=== PATIENT | female | born 1990 | race Caucasian/White ===

== ENCOUNTER 2018-08-31 08:40 | Emergency (ER) | payer SELFPAY ==
--- NOTE | 2018-08-31 10:14 | ER Document Report ---
HPI - HPI Patient complains to provider of: ankle pain left Time Seen by Provider: 08/31/18 09:43 Pain Level: 3 Context: 27-year-old female otherwise healthy presents to emergency department for left ankle injury sustained horseplaying in her bedroom this morning. She said that she was fighting for some car keys and she rolled her ankle. She was not able to bear weight on it and is still not able to bear weight on it at this time. She denies any head injury or striking her head. She denies any ankle or hip pain. She does have limited range of motion. No other complaints. - CONSTITUTIONAL Constitutional: DENIES: Fever, Chills - EENT EENT: DENIES: Sore Throat, Ear Pain, Eye problems - NEURO Neurology: DENIES: Headache, Weakness, Vision blurred, Dizzinesss / Vertigo - CARDIOVASCULAR Cardiovascular: DENIES: Chest pain - RESPIRATORY Respiratory: DENIES: Trouble Breathing, Coughing - GASTROINTESTINAL Gastrointestinal: DENIES: Abdominal Pain, Black / Bloody Stools - URINARY Urinary: DENIES: Dysuria, Urgency, Frequency - REPRODUCTIVE Reproductive: DENIES: : - MUSCULOSKELETAL Musculoskeletal: REPORTS: Extremity pain - left posterior ankle Past Medical History - Social History Smoking Status: Unknown if Ever Smoked Family History: None Patient has suicidal ideation: No Patient has homicidal ideation: No Renal/ Medical History: Denies: Hx Peritoneal Dialysis Vertical Provider Document - CONSTITUTIONAL Notes: PHYSICAL EXAMINATION: Reviewed vital signs and charting by RN GENERAL: Alert, interacts well. No acute distress. HEAD: Normocephalic, atraumatic. EYES: Pupils equal and round. Extraocular movements intact. ENT: Oral mucosa moist, tongue midline. NECK: Full range of motion. Supple. Trachea midline. LUNGS: Clear to auscultation bilaterally, no wheezes, rales, or rhonchi. No respiratory distress. HEART: Regular rate and rhythm. No murmur ABDOMEN: soft, non-tender. Non-distended. Bowel sounds present. no McBurney's point tenderness, no Robins sign. EXTREMITIES: Moves all 4 extremities spontaneously. Over the left lateral malleolus, acutely tender to light palpation, no tenderness to palpation over the proximal head of the fibula, normal distal neurovascular exam with 2+ DP and PT pulses with brisk cap refill. NEUROLOGIC: Oriented and appropriate. Normal speech. PSYCH: Normal affect, normal mood. SKIN: Warm, dry, normal turgor. No rashes or lesions noted. - INFECTION CONTROL TRAVEL OUTSIDE OF THE [place] IN LAST 30 DAYS: No Course - Re-evaluation Re-evalutation: 08/31/18 10:13 Overall well-appearing. Patient is not able to rule out of Brooks ankle rules so we will image her ankle. No head injury, no tenderness over the proximal fibular head so I am not concerned about a Maisonneuve fracture 08/31/18 10:41 X-ray negative for any fracture dislocation. Most likely soft tissue or ligamentous injury. I will put her in an ankle stirrup and if symptoms persist to have a follow-up with orthopedics in 10 to 14 days. - Vital Signs Vital signs: Temp Pulse Resp BP Pulse Ox 97.4 F 85 16 128/84 H 99 08/31/18 08:44 08/31/18 08:44 08/31/18 08:44 08/31/18 08:44 08/31/18 08:44 Discharge - Discharge Clinical Impression: Left ankle injury Qualifiers: Encounter type: initial encounter Qualified Code(s): S99.912A - Unspecified injury of left ankle, initial encounter Condition: Good Disposition: HOME, SELF-CARE Additional Instructions: Your x-ray does not show any acute fracture. You have a sprained ankle. Keep the area elevated, apply ice 20 minutes every 2 hours, and use crutches as needed. You should take ibuprofen 600 mg every 6 hours as needed for pain. Please return if you have worsening pain and swelling, fever greater than 101, you notice spreading redness from the area, or have any other symptoms that are concerning to you. Please follow-up with orthopedic surgery if your symptoms have not improved in the next 2-3 weeks.
--- NOTE | 2018-08-31 10:38 | RADIOLOGY REPORT (SQ) ---
EXAM DESCRIPTION: ANKLE LEFT COMPLETE COMPLETED DATE/TIME: 08/31/2018 10:29 am REASON FOR STUDY: bed 14 s/p tripped +tenderness COMPARISON: None. NUMBER OF VIEWS: Three views. TECHNIQUE: AP, lateral, and oblique radiographic images acquired of the left ankle. LIMITATIONS: None. FINDINGS: MINERALIZATION: Normal. BONES: No acute fracture or dislocation. No worrisome bone lesions. JOINTS: No effusions. SOFT TISSUES: No soft tissue swelling. No foreign body. OTHER: No other significant finding. IMPRESSION: NEGATIVE STUDY OF THE LEFT ANKLE. NO RADIOGRAPHIC EVIDENCE OF ACUTE INJURY. TECHNICAL DOCUMENTATION: JOB ID: [id number] [employer]- All Rights Reserved Reading location - IP/workstation name: [email or web address]
[2018-08-31 11:10] VITALS: BP 122/76
== END 2018-08-31 11:10 | disposition home or self-care (01) ==
LOC: ER 08:40
DX: S99.912A Unspecified injury of left ankle, initial encounter (principal); M25.572 Pain in left ankle and joints of left foot; X50.1XXA Overexertion from prolonged static or awkward postures, initial encounter
CPT/HCPCS: 99283; 73610; L4350